=== PATIENT | male | born 1975 | race Caucasian/White ===

== ENCOUNTER 2021-04-30 13:52 | Emergency (ER) | payer MEDICAID ==
[2021-04-30] MEDS ORDERED: Sodium Chloride 0.9% 1000 ML 1,000 ML IV STA (14:55)
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
[2021-04-30] MEDS ORDERED: Sodium Chloride 0.9% 1000 ML 0 ML ONE (15:26)
[2021-04-30 15:29] LABS: Absolute Neutrophil Ct (ANC) 6.26 (1.4-6.9); BASOPHIL % 0.3 % (0.0-0.4); Basophil (Absolute #) 0.03 (0-0.4); Eosinophil % 2.7 % (0.00-5.0); Eosinophil (Absolute #) 0.28 (0-0.5); Hematocrit 37.8 % (42-50); Hemoglobin 12.7 gm/dl (12.5-18.0); Lymphocyte (Absolute #) 2.57 (1.0-4.6); Lymphocytes % 25.1 % (24.0-44.0); Mean Cell Volume 91.5 fl (78-100); Mean Corpuscular Hemoglobin 30.8 pg (26-32); Mean Corpuscular Hgb Concent. 33.6 g/dl (32-36); Mean Platelet Volume 9.8 fl (7.5-11.0); Monocyte (Absolute #) 1.08 (0.0-1.3); Monocytes % 10.6 % (0.0-12.0); Neutrophil % 61.3 % (36.0-66.0); Platelet Count 380 K/mm3 (150-450); Red Blood Count 4.13 M/mm3 (4.1-5.6); Red Cell Distribution Width 13.5 % (11.5-14.0); White Blood Count 10.2 K/mm3 (4.0-10.5)
[2021-04-30] MEDS ORDERED: Sodium Chloride 0.9% 1000 ML 1,000 ML ONE (15:33)
[2021-04-30 15:45] LABS: ALBUMIN 3.8 g/dL (3.5-5.0); ALKALINE PHOSPHATASE 88 U/L (38-126); AMYLASE 47 U/L (30-110); ANION GAP 14.4 MEQ/L (5-15); BLOOD UREA NITROGEN 21 mg/dL (9-20); CHLORIDE 105 mmol/L (98-107); Calcium 9.3 mg/dL (8.4-10.2); Carbon Dioxide 27 mmol/L (22-30); Creatinine 1 0.91 mg/dL (0.66-1.25); EST GLOMERULAR FILTRATION RATE > 60.0 ML/MIN; Glucose 95 mg/dL (74-106); LIPASE 60 U/L (23-300); Potassium 4.2 mmol/L (3.5-5.1); SGOT/AST 42 U/L (17-59); SGPT/ALT 63 U/L (0-50); SODIUM 142 mmol/L (137-145); Total Protein 6.4 g/dL (6.3-8.2)
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
[2021-04-30] MEDS ORDERED: TORAdol 30 mg Injection IV ONE (17:13)
[2021-04-30 17:24] VITALS: BP 138/88; PULSE 99
[2021-04-30] MEDS ORDERED: TORAdol 30 mg Injection ONE (17:25)
[2021-04-30 21:12] VITALS: O2SAT 99
== END 2021-04-30 17:52 | disposition home or self-care (01) ==
LOC: ED 13:52
DX: S20.419A Abrasion of unspecified back wall of thorax, initial encounter (principal); S30.810A Abrasion of lower back and pelvis, initial encounter; S80.812A Abrasion, left lower leg, initial encounter; S80.811A Abrasion, right lower leg, initial encounter; S90.812A Abrasion, left foot, initial encounter; S90.811A Abrasion, right foot, initial encounter; V27.0XXA Motorcycle driver injured in collision with fixed or stationary object in nontraffic accident, initial encounter; Y93.9 Activity, unspecified; Y92.89 Other specified places as the place of occurrence of the external cause; S91.309A Unspecified open wound, unspecified foot, initial encounter
CPT/HCPCS: 36000; 36415; 71260; 73590; 73630; 74177; 80053; 82150; 83690; 85025; 96360; 96375; 99285; J1885; L4386

== ENCOUNTER 2021-05-02 01:07 | Emergency (ER) | payer MEDICAID ==
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
[2021-05-02] MEDS ORDERED: BACTRIM DS TABLET PO ONE ×2 (01:31→01:41)
[2021-05-02] MEDS ORDERED: NORCO 5/325 MG PO ONE (01:31)
[2021-05-02] MEDS ORDERED: Rocephin 1000 MG INJ IM ONE (01:31)
[2021-05-02] MEDS ORDERED: Rocephin 1000 MG INJ ONE ×2 (01:41→01:46)
[2021-05-02 01:56] VITALS: BP 145/97; PULSE 102; O2SAT 100
== END 2021-05-02 02:12 | disposition home or self-care (01) ==
LOC: ED 01:07
DX: M79.662 Pain in left lower leg (principal); M79.89 Other specified soft tissue disorders; M25.572 Pain in left ankle and joints of left foot; S80.812A Abrasion, left lower leg, initial encounter; S80.812D Abrasion, left lower leg, subsequent encounter; X58.XXXD Exposure to other specified factors, subsequent encounter
CPT/HCPCS: 96372; 99283; J0696; A9270-GY